=== PATIENT | male | born 1980 | race Two or more races ===

== ENCOUNTER 2024-04-08 21:55 | Emergency (ER) | payer MEDICARE, SELFPAY ==
[2024-04-08 22:17] VITALS: BP 136/82; PULSE 78; TEMP 36.8; O2SAT 97; BMI 21.6
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
--- NOTE | 2024-04-08 22:53 | XR_ITS ---
[facility] [place] [address] Patient Name: RIMA ROSENBAUM MRN: [id number] date: 1980 Sex: M Assigned Patient Location: ER Current Patient Location: Accession/Order Number: [id number] Exam Date: 04/08/2024 23:07 Report Date: 04/09/2024 00:40 At the request of: MERRILL NORTH Procedure: XR knee LT 3V EXAM: XR knee LT 3V HISTORY: twisted, pain COMPARISON: None. TECHNIQUE: 3 views of the left knee were obtained. FINDINGS: No acute fracture or dislocation is seen. The joint spaces are preserved. There is a possible small knee joint effusion. XR/XR knee LT 3V IMPRESSION: 1. Possible small left knee joint effusion with no acute fracture or dislocation seen. If there is concern for internal derangement, a nonemergent outpatient MRI is recommended. Electronically authenticated by: Deena BLISS Date: 04/09/2024 00:40
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
[2024-04-08] MEDS: ACETAMINOPHEN 300 MG/ 30 MG CODEINE TABLET 1 TAB PO (23:22)
== END 2024-04-09 00:39 | disposition home or self-care (01) ==
PROVIDERS: Emergency Provider Emergency Medicine
DX: S90.32XA Contusion of left foot, initial encounter (principal); V03.10XA Pedestrian on foot injured in collision with car, pick-up truck or van in traffic accident, initial encounter; S83.92XA Sprain of unspecified site of left knee, initial encounter
CPT/HCPCS: 73562; 73630; 99284

== ENCOUNTER 2024-04-12 13:39 | Outpatient (OUT) | payer MEDICARE, SELFPAY ==
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
== END 2024-04-12 13:40 | disposition home or self-care (01) ==
LOC: EC 13:39
PROVIDERS: Visit Provider Podiatrist Foot & Ankle Surgery
DX: M79.672 Pain in left foot (principal)
CPT/HCPCS: 73630

== ENCOUNTER 2024-04-18 09:00 | Outpatient (OUT) | payer MEDICARE, SELFPAY ==
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
--- NOTE | 2024-04-18 09:15 | XR_ITS ---
The [address] [address] Patient Name: RIMA ROSENBAUM MRN: [id number] date: 1980 Sex: M Assigned Patient Location: MRI Current Patient Location: MRI Accession/Order Number: [id number] Exam Date: 04/18/2024 09:15 Report Date: 04/18/2024 09:39 At the request of: JUVE YOUNG Procedure: XR foreign body eye EXAMINATION: XR foreign body eye HISTORY: Foreign Body Screen COMPARISON: No relevant comparison available. FINDINGS: ORBITS: Negative for a metallic foreign body. OTHER: Negative. XR/XR foreign body eye IMPRESSION: 1. No metallic foreign body within the orbits. Electronically authenticated by: DIANA NOEL Date: 04/18/2024 09:39
== END 2024-04-18 09:01 | disposition home or self-care (01) ==
LOC: MRI 09:00
PROVIDERS: Visit Provider Nurse Practitioner
DX: M25.562 Pain in left knee (principal); S83.512A Sprain of anterior cruciate ligament of left knee, initial encounter; S00.259A Superficial foreign body of unspecified eyelid and periocular area, initial encounter; M25.462 Effusion, left knee
CPT/HCPCS: 70030; 73721

== ENCOUNTER 2024-05-11 10:40 | Outpatient (OUT) | payer MEDICARE, SELFPAY ==
--- NOTE | 2024-05-11 | XR_ITS ---
[address] [address] Patient Name: RIMA ROSENBAUM MRN: [id number] date: 1980 Sex: M Assigned Patient Location: Current Patient Location: Accession/Order Number: [id number] Exam Date: 05/11/2024 10:41 Report Date: 05/11/2024 13:13 At the request of: JHONNY DONNELLY Procedure: XR foot LT min 3V PROCEDURE: XR foot LT min 3V COMPARISON: 04/12/24 HISTORY: LEFT FOOT PAIN FINDINGS: BONES:No fracture, acute abnormality, or significant arthropathy. SOFT TISSUES:Negative. No visible soft tissue swelling. EFFUSION:None visible. OTHER: Negative. XR/XR foot LT min 3V IMPRESSION: No acute radiographic abnormality Electronically authenticated by: MARIA TERESA ROSAS Date: 05/11/2024 13:13
== END 2024-05-11 10:41 | disposition home or self-care (01) ==
LOC: EC 10:40
PROVIDERS: Visit Provider Podiatrist Foot & Ankle Surgery
DX: M79.672 Pain in left foot (principal)
CPT/HCPCS: 73630